=== PATIENT | female | born 1950 | race Hispanic/Latino ===

== ENCOUNTER → 2019-04-14 | Outpatient (CLI) | payer OTHER ==
[~2019-04-14] MED LIST: REGADENOSON 0.4 MG/5 ML PF SYG IVP SCH
== END | disposition home or self-care (01) ==
LOC: SHCH 08:34
PROVIDERS: ATTEND Internal Medicine Cardiovascular Disease
DX: I20.9 Angina pectoris, unspecified (principal)
CPT/HCPCS: 78452; 93017; 96374; A9500 ×2; J2785

== ENCOUNTER → 2019-05-12 | Outpatient (CLI) | payer OTHER | END | disposition home or self-care (01) | LOC: SHCH 08:56 | PROVIDERS: ATTEND Internal Medicine Cardiovascular Disease | DX: I35.0 Nonrheumatic aortic (valve) stenosis (principal) | CPT/HCPCS: 93306 ==

== ENCOUNTER 2019-06-01 18:03 | Emergency (ER) | payer OTHER ==
[~2019-06-01 18:03] MED LIST changes: +ATOR10 PO; +METF500T20 PO; -REGADENOSON 0.4 MG/5 ML PF SYG IVP SCH; +VITAMIN D 2 PO
[2019-06-01 18:44] LABS: BASOPHILS % (AUTO) 0.8 % (0.0-5.0); EOSINOPHILS % (AUTO) 1.2 % (0.0-8.0); HEMATOCRIT 43.1 % (36-48); LYMPHOCYTES % (AUTO) 28.2 % (21.0-51.0); MEAN CORPUSCULAR HEMOGLOBIN 30.2 pg (27.0-33.0); MEAN CORPUSCULAR HGB CONC 33.9 g/dL (32.0-36.0); MEAN CORPUSCULAR VOLUME 89.2 fL (79-99); MONOCYTES % (AUTO) 7.3 % (3.0-13.0); NEUTROPHILS % (AUTO) 61.8 % (40.0-77.0); PLATELET COUNT (AUTO) 260 K/uL (130-400); RED BLOOD CELL COUNT(AUTO) 4.83 MIL/uL (4.00-5.50); RED CELL DISTRIBUTION WIDTH 12.4 % (11.0-15.5); WHITE BLOOD COUNT (AUTO) 8.5 K/uL (4.8-10.8)
[2019-06-01 18:53] LABS: CREATININE 0.7 mg/dL (0.5-1.5); POTASSIUM 4.3 mmol/L (3.5-5.1)
[2019-06-01 18:58] LABS: ALBUMIN 3.7 g/dL (3.5-5.0); BILIRUBIN,TOTAL 0.7 mg/dL (0.2-1.0); TOTAL PROTEIN, SERUM 7.7 g/dL (6.0-8.3)
[2019-06-01] MEDS ORDERED: INSULIN HUMULIN R 100 UNIT/ML 3ML ONE (19:23)
== END 2019-06-01 20:49 | disposition home or self-care (01) ==
LOC: EDH 18:03
DX: E11.65 Type 2 diabetes mellitus with hyperglycemia (principal); I25.10 Atherosclerotic heart disease of native coronary artery without angina pectoris; Z88.6 Allergy status to analgesic agent
CPT/HCPCS: 36415; 80053; 82948 ×2; 85025; 96374; 99284; J1815

== ENCOUNTER 2019-06-03 05:47 | Day surgery (SDC) | payer OTHER ==
[2019-06-01 16:57] VITALS: BP 95/64
[2019-06-01 17:00] LABS: BASOPHILS % (AUTO) 0.8 % (0.0-5.0); EOSINOPHILS % (AUTO) 0.7 % (0.0-8.0); HEMATOCRIT 42.2 % (36-48); LYMPHOCYTES % (AUTO) 27.2 % (21.0-51.0); MEAN CORPUSCULAR HEMOGLOBIN 30.4 pg (27.0-33.0); MEAN CORPUSCULAR HGB CONC 33.9 g/dL (32.0-36.0); MEAN CORPUSCULAR VOLUME 89.8 fL (79-99); MONOCYTES % (AUTO) 7.3 % (3.0-13.0); NEUTROPHILS % (AUTO) 63.4 % (40.0-77.0); PLATELET COUNT (AUTO) 259 K/uL (130-400); RED CELL DISTRIBUTION WIDTH 12.5 % (11.0-15.5); WHITE BLOOD COUNT (AUTO) 8.4 K/uL (4.8-10.8)
[2019-06-01 17:06] LABS: APPEARANCE,URINE Clear (CLEAR); BILIRUBIN,URINE Negative (NEGATIVE); COLOR,URINE Yellow (YELLOW); GLUCOSE, URINE (UA) >=1000 mg/dL (NEGATIVE); KETONES,URINE Negative (NEGATIVE); LEUKOCYTE ESTERASE ,URINE Negative (NEGATIVE); NITRATE,URINE Positive (NEGATIVE); OCCULT BLOOD,URINE Negative (NEGATIVE); PROTEIN,URINE Negative (NEGATIVE)
[2019-06-01 17:08] LABS: INR 0.94 (0.85-1.15); PROTHROMBIN TIME 9.9 SEC (9.6-11.6)
[2019-06-01 17:11] LABS: CREATININE 0.7 mg/dL (0.5-1.5)
[2019-06-01 17:17] LABS: BACTERIA,URINE Moderate /HPF (None Seen); MUCUS,URINE Few LPF (None Seen); RBC,URINE 0-1 /HPF (0-1); SQUAMOUS EPITHELIAL CELL,UR 0-2 /HPF (0-2)
[2019-06-01 17:21] LABS: PARTIAL THROMBOPLASTIN TIME 26.4 SEC (26.3-35.5)
--- NOTE | 2019-06-01 17:26 | NUR ---
CALLED [facility] REGAURDING A CRITICAL LAB(GLUCOSE 450) PER SEPIDE[facility] HERMOSILLO PT IS TO GO ER TO BE TREATED.
--- NOTE | 2019-06-01 17:29 | NUR ---
PT IS AWARE OF CRITICAL LAB GLUCOSE OF 450 AND IS GOING TO ER TO TREATED.
--- NOTE | 2019-06-02 14:50 | NUR ---
RE: URINALYSIS REPORTED ABNORMAL URINALYSIS TO [facility]. NO NEW ORDERS, OK TO PROCEED WITH PROCEDURE. INFORMED [facility] R[facility] THAT PATIENT WAS IN ER YESTERDAY FOR GLUCOSE OF 450. PER SELINA, PATIENT WILL STILL BE SCHEDULED FOR PROCEDURE TOMORROW (HEART CATH) AND CHECK PATIENT'S BLOOD SUGAR IN AM (FINGER STICK).
[2019-06-03] VITALS (13 sets, daily range): BP systolic 95–117; BP diastolic 33–72
[~2019-06-03] VITALS: Ht 147.3 cm; Wt 59.9 kg
[~2019-06-03 05:47] MED LIST changes: +SODIUM CHLORIDE 0.9% 500ML 500 ML IV SCH
[2019-06-03] MEDS ORDERED: SODIUM CHLORIDE 0.9% 1000ML 1,000 ML IV ONE (06:00)
[2019-06-03] MEDS ORDERED: BIVALIRUDIN 250 MG/VIAL IV ONE (07:10)
[2019-06-03] MEDS ORDERED: MIDAZOLAM HCL 1 MG/ML 2ML VIAL ONE (07:11)
[2019-06-03] MEDS ORDERED: LIDOCAINE HCL 2% 20ML ONE (07:11)
[2019-06-03] MEDS ORDERED: FENTANYL CITRATE PF 50 MCG/1 ML 2ML VIAL ONE (07:11)
[2019-06-03] MEDS ORDERED: HEPARIN SODIUM 1000UNIT/ML 10ML VIAL ONE (07:11)
[2019-06-03] MEDS ORDERED: NITROGLYCERIN 1 MG/VIAL VIAL IV ONE ×2 (07:12→08:49)
[2019-06-03] MEDS ORDERED: IOHEXOL 350 MG/ML 100ML INFUS..BTL IV ONE (07:15)
[2019-06-03] MEDS ORDERED: IOHEXOL-350 50ML VIAL IV ONE (07:15)
[2019-06-03] MEDS ORDERED: DEXTROSE 50%-WATER 50 ML DISP.SYRIN IV PRN (09:45)
[2019-06-03] MEDS ORDERED: GLUCAGON 1MG KIT 1 MG ML IM PRN (09:45)
[2019-06-03] MEDS ORDERED: INSULIN HUMULIN R 100 UNIT/ML 3ML SQ SCH (11:30)
--- NOTE | 2019-06-03 11:30 | NUR ---
DIET PER KENYATTA JO RN/DR. DE LEON, PT MAY HAVE DIET, SURGERY WILL NOT BE DONE TODAY.
--- NOTE | 2019-06-03 13:30 | NUR ---
CONSULT DR. DE LEON CAME TO SEE AND TALKED TO PT AND FAMILY WITH REGARDS TO SURGERY. PER DR. DE LEON, PT MAY BE DISCHARGED TODAY. PER PT, SURGERY PLANNED IN 2 WEEKS, THAT DR. DE LEON OFFICE WILL CONTACT HER.
--- NOTE | 2019-06-03 13:45 | NUR ---
[facility] CALLED [facility]. PER DARREL, MAY RESUME HOME MEDS, RESUME [facility] TOMORROW.
--- NOTE | 2019-06-03 17:00 | NUR ---
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 DISCHARGE INSTRUCTIONS GIVEN TO DAUGHTER AND PT EARLIER. PT TOLERATED DIET WELL. VOIDED. CATH SITE REMAINS SOFT, NO OOZING NO HEMATOMA NOTED.
--- NOTE | 2019-06-03 17:15 | NUR ---
PT DISCHARGED VIA WHEELCHAIR WITH DAUGHTER.
== END 2019-06-03 17:15 | disposition home or self-care (01) ==
LOC: DAH 05:47
PROVIDERS: ATTEND Internal Medicine Cardiovascular Disease
DX: I35.0 Nonrheumatic aortic (valve) stenosis (principal); I25.10 Atherosclerotic heart disease of native coronary artery without angina pectoris; E11.9 Type 2 diabetes mellitus without complications; E78.5 Hyperlipidemia, unspecified; Z88.6 Allergy status to analgesic agent; Z79.84 Long term (current) use of oral hypoglycemic drugs; Z79.01 Long term (current) use of anticoagulants; Z79.899 Other long term (current) drug therapy
CPT/HCPCS: 36415; 71045; 80048; 81001; 82948 ×2; 85025; 85610; 85730; 93005; 93460; A4215; A4216; A4221; A4222; A4223 ×3; A4606; A4663; C1769 ×2; C1894 ×4; J1644; J1815; J3490 ×3; J7030; Q9965 ×2; Q9967 ×2; J0583; J2250; J3010

== ENCOUNTER → 2019-12-09 | Outpatient (CLI) | payer OTHER ==
[~2019-12-09] MED LIST changes: +FURO20TA6 PO; +METF-910 PO; -METF500T20 PO; -SODIUM CHLORIDE 0.9% 500ML 500 ML IV SCH; +WARF1TAB PO
== END | disposition home or self-care (01) ==
LOC: SHCH 13:40
PROVIDERS: ATTEND Internal Medicine Cardiovascular Disease
DX: I35.1 Nonrheumatic aortic (valve) insufficiency (principal); I10 Essential (primary) hypertension
CPT/HCPCS: 93306; 93356; 93880

== ENCOUNTER → 2021-12-25 | Outpatient (CLI) | payer OTHER, MEDICARE ==
[~2021-12-25] VITALS: Ht 149.9 cm; Wt 79.8 kg
[~2021-12-25] MED LIST changes: +REGADENOSON 0.4 MG/5 ML PF SYG IVP SCH
== END | disposition home or self-care (01) ==
LOC: SHCH 08:26
PROVIDERS: ATTEND Internal Medicine Cardiovascular Disease
DX: I25.119 Atherosclerotic heart disease of native coronary artery with unspecified angina pectoris (principal); I35.0 Nonrheumatic aortic (valve) stenosis
CPT/HCPCS: 78452; 93017; J2785; A9500 ×2; 96374

== ENCOUNTER → 2022-06-29 | Outpatient (CLI) | payer OTHER, MEDICARE ==
[~2022-06-29] MED LIST changes: -REGADENOSON 0.4 MG/5 ML PF SYG IVP SCH
[2022-06-29 15:33] LABS: ALBUMIN 3.5 g/dL (3.5-5.0); CREATININE 0.7 mg/dL (0.5-1.5); POTASSIUM 4.5 mmol/L (3.5-5.1); TOTAL PROTEIN, SERUM 7.3 g/dL (6.0-8.3)
== END | disposition home or self-care (01) ==
LOC: LAB 09:55
PROVIDERS: ATTEND Physician Assistant
DX: Z95.2 Presence of prosthetic heart valve (principal)
CPT/HCPCS: 36415; 80053; 80061